=== PATIENT | female | born 1945 | race Asian ===

== ENCOUNTER 2025-04-11 18:53 | Emergency (ER) | payer OTHER ==
[~2025-04-11] VITALS: Ht 160 cm; Wt 55.0 kg
[2025-04-11 19:00] VITALS: O2SAT 98
[2025-04-11] MEDS: LIDOCAINE HCL/EPINEPHRINE 1%-EPI 1:100,000 20ML VIAL INFIL ONE (20:45)
[2025-04-11] MEDS: TETANUS, DIPHTHERIA, PERTUSSIS VAC/PF 0.5ML (>10YR OLD) IM ONE (21:34)
[2025-04-11 21:57] VITALS: BP 159/76; PULSE 84; RESP 15; TEMP 36.8; O2SAT 99
== END 2025-04-11 22:10 | disposition home or self-care (01) ==
LOC: ER 18:53
DX: S01.81XA Laceration without foreign body of other part of head, initial encounter (principal); I10 Essential (primary) hypertension; E11.9 Type 2 diabetes mellitus without complications; W01.0XXA Fall on same level from slipping, tripping and stumbling without subsequent striking against object, initial encounter; Y93.89 Activity, other specified; Y92.89 Other specified places as the place of occurrence of the external cause; Y99.8 Other external cause status
CPT/HCPCS: 99284; 70450; 72125; 12011; J2004; 12001